=== PATIENT | female | born 1965 ===

== ENCOUNTER 2018-11-16 09:15 | Emergency (ER) | payer MEDICAID ==
[2018-11-16 10:01] LABS: SQUAMOUS EPITHIAL 2 /hpf (0-5); URINE BACTERIA FEW (<OCC); URINE BILIRUBIN NEGATIVE (NEGATIVE); URINE BLOOD 3+ (NEGATIVE); URINE CLARITY Hazy (Clear); URINE COLOR Amber (YELLOW); URINE GLUCOSE (UA) NORMAL (Normal); URINE LEUKOCYTE ESTERASE 3+ Leu/uL (Negative); URINE PROTEIN 2+ mg/dL (NEGATIVE); URINE UROBILINOGEN NORMAL mg/dL (0.2-1.0); WBC CLUMPS RARE /hpf
--- NOTE | 2018-11-16 10:15 | C.PDOC ---
History Of Present Illness 53 y/o female presents [facility] ED complaining of pelvic pain and dysuria since Tuesday- 6 days ago. Patient states she was seen by her final inspector Dr. Ester Aguirre on that Tuesday and was given pills to take, but she reports she doesnt feel any better so she came to the ER. She has a t history of recurrent UTIs, most recently in September. At that time, patient took macrobid and the symptoms resolved. Patient denies fever, vaginal bleeding or discharge, nausea, vomiting, or diarrhea. Time Seen by Provider: 11/16/18 09:23 Chief Complaint (Nursing): Female Genitourinary History Per: Patient History/Exam Limitations: no limitations Onset/Duration Of Symptoms: Days Current Symptoms Are (Timing): Still Present Severity: Mild Past Medical History Reviewed: Historical Data, Nursing Documentation, Vital Signs Vital Signs: Last Vital Signs Temp 98.6 F 11/16/18 09:19 Pulse 80 11/16/18 09:19 Resp 16 11/16/18 09:19 BP 112/61 11/16/18 09:19 Pulse Ox 99 11/16/18 09:19 - Medical History PMH: HTN - [employer] Procedures COLONOSCOPY (11/21/13) Family History: States: No Known Family Hx - Social History Hx Alcohol Use: No Hx Substance Use: No Review Of Systems Constitutional: Negative for: Fever Cardiovascular: Negative for: Chest Pain Respiratory: Negative for: Shortness of Breath Gastrointestinal: Positive for: Abdominal Pain (suprapubic). Negative for: Franko sea, Vomiting, Diarrhea Genitourinary: Positive for: Dysuria, Pelvic Pain. Negative for: Vaginal Discharge, Vaginal Bleeding Musculoskeletal: Positive for: Back Pain (right-sided, lower back) Skin: Negative for: Rash Physical Exam - Physical Exam Appears: Well, Non-toxic, No Acute Distress Skin: Normal Color, Warm, Dry, No Rash Eye(s): bilateral: Normal Inspection Oral Mucosa: Moist Neck: Supple Cardiovascular: Rhythm Regular Respiratory: Normal Breath Sounds, No Rales, No Rhonchi, No Wheezing Gastrointestinal/Abdominal: Bowel Sounds, Soft, Tenderness (mild suprapubic tenderness to palpation, (-) McBurney's, (-) Sanabria's), No Distention, No Guarding, No Rebound Back: No CVA Tenderness Extremity: Bilateral: Atraumatic, Normal Color And Temperature, Normal ROM Neurological/Psych: Oriented x3 ED Course And Treatment O2 Sat by Pulse Oximetry: 99 (RA) Pulse Ox Interpretation: Normal Progress Note: UA and urine culture ordered. Patient given PO tylenol. Discussed patient with her planning specialist Dr. Aguirre, who states that patient has been having dysfunctional uterine bleeding, and had a recent pelvic US which showed a thickened endometrium (7-8 mm). Patient is scheduled for endometrial biopsy today at 4pm and was given 400 micrograms of cytotec to be taken 3-4 hours prior to this biopsy (due to stenotic cervix). Dr. Aguirre recommends patient be sent to her office after ER discharge. Reevaluation Time: 10:35 Reassessment Condition: Improved (Patient currently resting comfortably. UA shows UTI, PO Ciprofloxacin given, as well as Rx for same. Patient instructed to follow up with her planning specialist immediately after discharge from ED, as she is expected in the office. She understands she should return to ED if symptoms worsen.) Disposition Counseled Patient/Family Regarding: Studies Performed, Diagnosis, Need For Followup, Rx Given - Disposition Referrals: Ester Aguirre MD [Medical Doctor] - Disposition: HOME/ ROUTINE Disposition Time: 10:35 Condition: STABLE Additional Instructions: GO TO DR AGUIRRE'S OFFICE AFTER YOUR DISCHARGE FROM THE ER USE ANTIBIOTICS DIRECTED RETURN TO ER IF SYMPTOMS WORSEN Prescriptions: Acetaminophen [Tylenol 325mg tab] 650 mg PO Q6 PRN #30 tab PRN Reason: pain/fever Ciprofloxacin [Cipro] 1 tab PO BID #14 tab Instructions: Urinary Tract Infection, Adult (DC) Forms: [employer] (Indian) Print Language: NAMIBIAN - Clinical Impression Clinical Impression: Thickened endometrium, UTI (urinary tract infection) - Scribe Statement The provider has reviewed the documentation as recorded by the Scarlet Pabon Provider Attestation: All medical record entries made by the Keriibsrinivas were at my direction and personally dictated by me. I have reviewed the chart and agree that the record accurately reflects my personal performance of the history, physical exam, medical decision making, and the department course for this patient. I have also personally directed, reviewed, and agree with the discharge instructions and disposition.
[2018-11-16 11:05] VITALS: BP 107/73; PULSE 67; RESP 18; TEMP 98.4
[2018-11-20 17:13] VITALS: O2SAT 99
== END 2018-11-16 11:04 | disposition home or self-care (01) ==
LOC: C.ER 09:15
DX: N39.0 Urinary tract infection, site not specified (principal); R93.89 Abnormal findings on diagnostic imaging of other specified body structures